=== PATIENT | female | born 1950 | race Caucasian/White ===

== ENCOUNTER 2016-10-08 08:23 | Day surgery (SDC) | payer OTHER ==
[~2016-10-08] VITALS: Ht 172.7 cm; Wt 66.2 kg
[~2016-10-08 08:23] MED LIST: Sodium Chloride LOK Flush 10 mL Syringe IV PRN; fentaNYL-PF 50 mCg/mL 2 mL Inj IVPUSH PRN
[2016-10-08 08:42] VITALS: BP 128/78; PULSE 71; RESP 16; O2SAT 98
[2016-10-08] MEDS: 0.9% Sodium Chloride 1,000 ML IV PRN ×3 (08:46→09:49)
--- NOTE | 2016-10-08 09:52 | PCM.ENDCOL ---
Colonoscopy Date of Service: Oct 08, 2016 Physician Billy Stokes MD Pre Procedure Diagnosis: Screening history of polyps Post Procedure Dx & Findings: Hemorrhoids diverticuli Procedure Colonoscopy PROCEDURE IN DETAIL: Prep adequate Withdrawal time 10 minutes After unremarkable rectal examination the Olympus video colonoscope was inserted patient's anal canal and was advanced to cecum. Landmarks were identified including the ileocecal valve and appendiceal orifice. Scope was withdrawn systematically. Visualized colonic mucosa showed healthy shiny mucosa with normal healthy-appearing vasculature. In the sigmoid colon there are few small diverticula. In the rectum retroflexion was done which showed hemorrhoids. Anal canal was inspected carefully on the way out and hemorrhoids noted. Impression Diverticulosis History of polyps Hemorrhoids Recommendation Repeat colonoscopy 5 years Diverticular diet Presedation Assessment Risks and Benefits Informed consent was obtained from the patient after all risks and benefits including but not limited to drug reaction, infection, pain, bleeding, perforation, as well as alternatives were discussed. Patient monitoring Continuous pulse oximetry, cardiac monitoring, blood pressure monitoring, IV access, and oxygen at 2L per nasal cannula. Periprocedural Fentanyl: Fentanyl 125mcg Incrementally Midazolam: Midazolam 5mg Incrementally Complications There were no periprocedural complications identified. Post Procedure Plan Post Procedure Recommendations 1. Restrict activities today. 2. Resume normal activities in the morning. 3. Resume medications. 4. Patient informed of normal post procedure side effects as bloating, drowsiness, blood streaking in the stool. 5. average risk CRCS. If colon polyps come back as: -Hyperplastic- can repeat colonoscopy in 10 years -Tubular adenoma- repeat colonoscopy in 5 years -Tubulovillous/villous adenoma- repeat colonoscopy in 3 years -If any dysplasia- return to clinic as soon as possible 6. Please don't hesitate to call me with any questions. Billy Stokes MD Oct 08, 2016 09:52
[2016-10-08 09:56] VITALS: BP 102/72; PULSE 62; RESP 16; O2SAT 100
[2016-10-08 10:02] VITALS: BP 112/64; PULSE 73; RESP 14; O2SAT 100
== END 2016-10-08 23:59 | disposition home or self-care (01) ==
LOC: END 08:23
PROVIDERS: ATTEND Internal Medicine
DX: Z12.11 Encounter for screening for malignant neoplasm of colon (principal); K57.30 Diverticulosis of large intestine without perforation or abscess without bleeding; K64.8 Other hemorrhoids; Z86.010 Personal history of colon polyps
CPT/HCPCS: 99153; G0105; G0500; J2250; J3010; J7030